=== PATIENT | male | born 1970 | race Caucasian/White ===

== ENCOUNTER 2020-08-16 10:58 | Emergency (ER) | payer BC, OTHER ==
[~2020-08-16] VITALS: Ht 175.3 cm; Wt 107.0 kg
[2020-08-16] MEDS ORDERED: LIPITOR 20 MG T20 M1 PO (11:15)
[2020-08-16 12:12] LABS: ABSOLUTE NEUTROPHILS 7.9 thou/uL (1.4-8.2); BASOPHILS 0.3 % (0.0-2.0); EOSINOPHILS 0.9 % (0.0-3.0); HEMATOCRIT 46.9 % (42.0-52.0); HEMOGLOBIN 16.4 gm/dL (14.0-18.0); LYMPHOCYTES 26.6 % (24.0-44.0); MCH 32.5 pg (26.0-34.0); MCV 92.9 fL (80.0-100.0); MONOCYTES 12.2 % (1.0-8.0); PLATELET COUNT 173 thou/uL (150-400); RBC 5.05 mil/uL (4.50-6.00); RDW 13.2 % (10.5-14.5); WBC 13.1 thou/uL (4.0-11.0)
[2020-08-16 12:27] LABS: CREATININE 1.1 mg/dL (0.7-1.3); POTASSIUM 3.6 mmol/L (3.5-5.1)
[2020-08-16 12:30] LABS: ALBUMIN 4.2 g/dL (3.4-5.0); TOTAL BILIRUBIN 1.3 mg/dL (0.2-1.0); TOTAL PROTEIN 7.6 g/dL (6.4-8.2)
[2020-08-16] MEDS ORDERED: FLAGYL500 M1 PO (12:56)
[2020-08-16] MEDS ORDERED: CIPROFLOXACIN500 M1 PO (12:56)
[2020-08-16 13:11] VITALS: BP 127/85
== END 2020-08-16 13:12 | disposition home or self-care (01) ==
LOC: ER 10:58
PROVIDERS: Emergency Medicine
DX: K57.32 Diverticulitis of large intestine without perforation or abscess without bleeding (principal); Z79.899 Other long term (current) drug therapy